=== PATIENT | male | born 1985 | race Caucasian/White ===

== ENCOUNTER 2019-07-18 00:15 | Emergency (ER) | payer SELFPAY ==
[~2019-07-18] VITALS: Ht 177.8 cm; Wt 99.8 kg
[2019-07-18] MEDS ORDERED: ONDANSETRON HCL 4 MG ORAL DISINTEGRATING TAB ONE (00:47)
== END 2019-07-18 00:50 | disposition left against medical advice (07) ==
LOC: FSED 00:15
DX: R11.2 Nausea with vomiting, unspecified (principal); R00.0 Tachycardia, unspecified
CPT/HCPCS: 93005; Q0162